=== PATIENT | female | born 1990 | race Caucasian/White ===

== ENCOUNTER 2019-02-07 11:57 | Inpatient (IN) | payer MEDICAID ==
[~2019-02-07] VITALS: Ht 172.7 cm; Wt 70.3 kg
[~2019-02-07 11:57] MED LIST: ASEN5TAB6 SL
[2019-02-07 12:45] LABS: BASOPHILS % (AUTO) 0.7 % (0.0-2.0); HEMATOCRIT 38.8 % (36-46); HEMOGLOBIN 13.1 g/dL (12.0-16.0); LYMPHOCYTES # (AUTO) 2.1 K/uL (1.0-4.8); LYMPHOCYTES % (AUTO) 25.9 % (22.0-44.0); MEAN CORPUSCULAR HEMOGLOBIN 30.1 pg (26.0-34.0); MEAN CORPUSCULAR HGB CONC 33.7 G/dL (31.0-37.0); MEAN CORPUSCULAR VOLUME 89 fL (80-100); MONOCYTES # (AUTO) 0.5 K/uL (0.1-1.0); MONOCYTES % (AUTO) 5.9 % (2.0-9.0); NEUTROPHILS # (AUTO) 5.4 K/uL (1.8-7.7); NEUTROPHILS % (AUTO) 66.5 % (40.0-70.0); PLATELET COUNT (AUTO) 228 K/uL (150-450); RED BLOOD CELL COUNT(AUTO) 4.35 MIL/uL (4.00-5.20)
[2019-02-07 12:54] LABS: ANION GAP 8 mmol/L (8-16); CALCIUM, TOTAL 8.4 mg/dL (8.8-10.5); CARBON DIOXIDE 26 mmol/L (22-29); CHLORIDE 105 mmol/L (98-107); CREATININE 0.57 mg/dL (0.60-1.30); GLOMERULAR FILTR. RATE CALC > 60 mL/min (>60); GLUCOSE,RANDOM 84 mg/dL (70-110); SODIUM SERUM 139 mmol/L (136-145); UREA NITROGEN, BLOOD 21 mg/dL (7-18)
[2019-02-07 12:59] LABS: ALANINE AMINOTRANSFERASE 26 U/L (12-78); ALBUMIN 3.4 g/dL (3.4-5.0); ALKALINE PHOSPHATASE 57 U/L (46-116); ASPARTATE AMINOTRANSFERASE 22 U/L (15-37); BILIRUBIN,TOTAL 0.3 mg/dL (0.1-1.0); TOTAL PROTEIN, SERUM 6.8 g/dL (6.4-8.2)
[2019-02-07] MEDS ORDERED: ZOLPIDEM TARTRATE 10 MG TABLET PO PRN (14:00)
[2019-02-07 19:11] VITALS: BP 132/74
[2019-02-07 19:45] VITALS: BP 132/74
[2019-02-07] MEDS ORDERED: MAGNESIUM HYDROXIDE SUSPENSION 30 ML UDCUP PO PRN (21:15)
[2019-02-07] MEDS ORDERED: LOPERAMIDE HCL 2 MG CAPSULE PO PRN (21:15)
[2019-02-07] MEDS ORDERED: ALBUTEROL SULFATE HFA 90 MCG/PUFF 8 GM INHALER IH PRN (21:15)
[2019-02-07] MEDS ORDERED: ACETAMINOPHEN 325 MG TABLET PO PRN (21:15)
[2019-02-07] MEDS ORDERED: MAG HYDROX/AL HYDROX/SIMETH ES 30 ML SUSPENSION UDCUP PO PRN (21:15)
[2019-02-07] MEDS ORDERED: IBUPROFEN 400 MG TABLET PO PRN (21:15)
[2019-02-07] MEDS ORDERED: CloNIDine HCL 0.1 MG TABLET PO PRN (21:15)
[2019-02-07] MEDS ORDERED: ONDANSETRON HCL 4 MG TABLET PO PRN (21:15)
[2019-02-07] MEDS ORDERED: NICOTINE 14 MG/24 HOUR PATCH TD PRN (21:15)
[2019-02-07] MEDS ORDERED: DOCUSATE SODIUM 100 MG CAPSULE PO PRN (21:15)
[2019-02-07] MEDS ORDERED: GuaiFENesin/D-METHORPHAN [SUGAR-FREE] 200-20MG/10 ML SYRUP UDCUP PO PRN (21:15)
[2019-02-07] MEDS ORDERED: PETROLATUM,WHITE 28 GM JELLY TP PRN (21:15)
[2019-02-08] MEDS ORDERED: INFLUENZA VIRUS VACCINE QVS 2019-20 (3YR+)/PF 60 MCG/0.5 ML SYRINGE IM ONE (04:15)
[2019-02-08 07:16] LABS: CHOL/HDL RATIO 2.2 (3.9-5.7); FREE T4 (FREE THYROXINE) 0.99 ng/dL (0.76-1.46); THYROID STIMULATING HORMONE 0.64 uIU/mL (0.36-3.74)
[2019-02-08] MEDS: ESCITALOPRAM OXALATE 10 MG TABLET PO SCH (17:47)
[2019-02-08] MEDS: OLANZapine 10 MG TABLET PO SCH (17:47)
[2019-02-09 09:40] VITALS: BP 131/82
[2019-02-09] MEDS: ESCITALOPRAM OXALATE 10 MG TABLET PO SCH (20:37)
[2019-02-09] MEDS: OLANZapine 10 MG TABLET PO SCH (20:37)
[2019-02-10 10:10] VITALS: BP 103/62
[2019-02-10] MEDS: OLANZapine 10 MG TABLET PO SCH (20:09)
[2019-02-10] MEDS: ESCITALOPRAM OXALATE 10 MG TABLET PO SCH (20:09)
[2019-02-11 08:28] VITALS: BP 148/80
[2019-02-11 20:08] VITALS: BP 126/56
[2019-02-11] MEDS: ESCITALOPRAM OXALATE 10 MG TABLET PO SCH (20:42)
[2019-02-11] MEDS: OLANZapine 10 MG TABLET PO SCH (20:42)
[2019-02-12 08:52] VITALS: BP 124/72
[2019-02-13 08:31] VITALS: BP 124/69
[2019-02-13 19:02] VITALS: BP 110/68
[2019-02-13] MEDS: OLANZapine 10 MG TABLET PO SCH (21:00)
[2019-02-13] MEDS: ESCITALOPRAM OXALATE 10 MG TABLET PO SCH (21:00)
[2019-02-14 10:58] VITALS: BP 114/88
[2019-02-14] MEDS: OLANZapine 10 MG TABLET PO SCH (20:48)
[2019-02-14] MEDS: ESCITALOPRAM OXALATE 10 MG TABLET PO SCH (20:48)
[2019-02-15] MEDS ORDERED: LORazepam 2 MG/ML VIAL IM ONE (13:30)
[2019-02-15] MEDS ORDERED: DiphenhydrAMINE HCL 50 MG/ML VIAL IM ONE (13:30)
[2019-02-15] MEDS ORDERED: HALOPERIDOL LACTATE 5 MG/ML VIAL IM ONE (13:30)
[2019-02-15] MEDS: ESCITALOPRAM OXALATE 10 MG TABLET PO SCH (20:53)
[2019-02-15] MEDS: OLANZapine 10 MG TABLET PO SCH (20:53)
[2019-02-16 08:28] VITALS: BP 131/70
[2019-02-16] MEDS: HALOPERIDOL 5 MG TABLET PO PRN (15:46)
[2019-02-16] MEDS: LORazepam 2 MG TABLET PO PRN (17:04)
[2019-02-16] MEDS: ESCITALOPRAM OXALATE 10 MG TABLET PO SCH (20:23)
[2019-02-16] MEDS: OLANZapine 10 MG TABLET PO SCH (20:23)
[2019-02-16 20:47] VITALS: BP 111/70
[2019-02-17 10:03] VITALS: BP 141/91
[2019-02-17 17:00] VITALS: BP 116/71
[2019-02-17] MEDS: ESCITALOPRAM OXALATE 10 MG TABLET PO SCH (20:24)
[2019-02-17] MEDS: OLANZapine 10 MG TABLET PO SCH (20:24)
[2019-02-18 05:29] VITALS: BP 119/79
[2019-02-18 08:52] VITALS: BP 147/83
[2019-02-18 17:09] VITALS: BP 124/83
[2019-02-18] MEDS: ESCITALOPRAM OXALATE 10 MG TABLET PO SCH (20:44)
[2019-02-18] MEDS: OLANZapine 10 MG TABLET PO SCH (20:44)
[2019-02-19 09:15] VITALS: BP 100/63
[2019-02-19 16:25] VITALS: BP 120/80
[2019-02-19] MEDS: ESCITALOPRAM OXALATE 10 MG TABLET PO SCH (20:15)
[2019-02-19] MEDS: OLANZapine 10 MG TABLET PO SCH (20:15)
[2019-02-20 10:21] VITALS: BP 123/72
[2019-02-20 16:00] VITALS: BP 115/69
[2019-02-20] MEDS: OLANZapine 10 MG TABLET PO SCH (20:26)
[2019-02-20] MEDS: ESCITALOPRAM OXALATE 10 MG TABLET PO SCH (20:27)
[2019-02-21 09:00] VITALS: BP 118/61
[2019-02-21 16:00] VITALS: BP 131/73
[2019-02-21] MEDS: OLANZapine 10 MG TABLET PO SCH (20:13)
[2019-02-21] MEDS: ESCITALOPRAM OXALATE 10 MG TABLET PO SCH (20:13)
[2019-02-22 12:55] VITALS: BP 120/74
[2019-02-22 17:14] VITALS: BP 118/70
[2019-02-22] MEDS: ESCITALOPRAM OXALATE 10 MG TABLET PO SCH (20:17)
[2019-02-22] MEDS: OLANZapine 10 MG TABLET PO SCH (20:17)
[2019-02-23 09:36] VITALS: BP 116/80
[2019-02-23 17:48] VITALS: BP 130/66
[2019-02-23] MEDS: ESCITALOPRAM OXALATE 10 MG TABLET PO SCH (20:30)
[2019-02-23] MEDS: OLANZapine 10 MG TABLET PO SCH (20:30)
[2019-02-24 09:30] VITALS: BP 131/81
[2019-02-24 17:54] VITALS: BP 101/60
[2019-02-24] MEDS: ESCITALOPRAM OXALATE 10 MG TABLET PO SCH (20:30)
[2019-02-24] MEDS: OLANZapine 10 MG TABLET PO SCH (20:30)
[2019-02-25] MEDS: OLANZapine 5 MG TABLET PO SCH (12:51)
[2019-02-25 17:39] VITALS: BP 109/42
[2019-02-25] MEDS: ESCITALOPRAM OXALATE 10 MG TABLET PO SCH (20:39)
[2019-02-25] MEDS: OLANZapine 10 MG TABLET PO SCH (20:39)
[2019-02-26 09:00] VITALS: BP 129/74
[2019-02-26] MEDS: OLANZapine 5 MG TABLET PO SCH (09:59)
[2019-02-26] MEDS: LORazepam 2 MG TABLET PO PRN (16:44)
[2019-02-26 17:31] VITALS: BP 115/77
[2019-02-26] MEDS: OLANZapine 10 MG TABLET PO SCH (20:32)
[2019-02-26] MEDS: ESCITALOPRAM OXALATE 10 MG TABLET PO SCH (20:33)
[2019-02-27 08:38] VITALS: BP 115/66
[2019-02-27] MEDS: OLANZapine 5 MG TABLET PO SCH ×2 (09:00→09:56)
[2019-02-27 18:25] VITALS: BP 133/100
[2019-02-27] MEDS: OLANZapine 10 MG TABLET PO SCH (20:34)
[2019-02-27] MEDS: ESCITALOPRAM OXALATE 10 MG TABLET PO SCH (20:34)
[2019-02-28 00:31] VITALS: BP 132/74
[2019-02-28 09:01] VITALS: BP 131/81
[2019-02-28] MEDS: LORazepam 2 MG TABLET PO PRN (09:38)
[2019-02-28] MEDS: OLANZapine 5 MG TABLET PO SCH (09:38)
[2019-02-28] MEDS: ESCITALOPRAM OXALATE 10 MG TABLET PO SCH (20:54)
[2019-02-28] MEDS: OLANZapine 10 MG TABLET PO SCH (20:54)
[2019-03-01] MEDS: LORazepam 2 MG TABLET PO PRN (09:12)
[2019-03-01] MEDS: OLANZapine 5 MG TABLET PO SCH (09:12)
[2019-03-01 09:33] VITALS: BP 130/86
[2019-03-01 17:00] VITALS: BP 113/74
[2019-03-01] MEDS: ESCITALOPRAM OXALATE 10 MG TABLET PO SCH (20:56)
[2019-03-01] MEDS: OLANZapine 10 MG TABLET PO SCH (20:56)
[2019-03-02 08:00] VITALS: BP 122/70
[2019-03-02] MEDS: OLANZapine 5 MG TABLET PO SCH (10:20)
[2019-03-02] MEDS: LORazepam 2 MG TABLET PO PRN (10:20)
[2019-03-02 20:31] VITALS: BP 113/72
[2019-03-02] MEDS: OLANZapine 10 MG TABLET PO SCH (20:42)
[2019-03-02] MEDS: ESCITALOPRAM OXALATE 10 MG TABLET PO SCH (20:42)
[2019-03-03 08:15] VITALS: BP 122/60
[2019-03-03] MEDS: OLANZapine 5 MG TABLET PO SCH (09:40)
[2019-03-03] MEDS: LORazepam 2 MG TABLET PO PRN (09:40)
[2019-03-03 18:22] VITALS: BP 118/68
[2019-03-03] MEDS: OLANZapine 10 MG TABLET PO SCH (20:16)
[2019-03-03] MEDS: ESCITALOPRAM OXALATE 10 MG TABLET PO SCH (20:16)
[2019-03-04 08:39] VITALS: BP 110/56
[2019-03-04] MEDS: OLANZapine 5 MG TABLET PO SCH (09:33)
[2019-03-04 16:30] VITALS: BP 115/70
[2019-03-04] MEDS: ESCITALOPRAM OXALATE 10 MG TABLET PO SCH (20:17)
[2019-03-04] MEDS: OLANZapine 10 MG TABLET PO SCH (20:17)
[2019-03-05 08:30] VITALS: BP 127/68
[2019-03-05] MEDS: LORazepam 2 MG TABLET PO PRN (09:35)
[2019-03-05] MEDS: OLANZapine 5 MG TABLET PO SCH (09:36)
[2019-03-05] MEDS: ESCITALOPRAM OXALATE 10 MG TABLET PO SCH (20:10)
[2019-03-05] MEDS: OLANZapine 10 MG TABLET PO SCH (20:10)
[2019-03-06 05:03] VITALS: BP_SYST 115; BP_SYST 128; BP_DIAS 73; BP_DIAS 97
[2019-03-06] MEDS: OLANZapine 5 MG TABLET PO SCH (09:23)
[2019-03-06 09:38] VITALS: BP 117/71
[2019-03-06 16:00] VITALS: BP 127/72
[2019-03-06] MEDS: OLANZapine 10 MG TABLET PO SCH (20:27)
[2019-03-06] MEDS: ESCITALOPRAM OXALATE 10 MG TABLET PO SCH (20:27)
[2019-03-07 00:52] VITALS: BP 107/76
[2019-03-07 08:00] VITALS: BP 127/88
[2019-03-07] MEDS: OLANZapine 5 MG TABLET PO SCH (08:54)
[2019-03-07] MEDS: LORazepam 2 MG TABLET PO PRN (15:53)
[2019-03-07] MEDS: HALOPERIDOL 5 MG TABLET PO PRN (15:53)
[2019-03-07 19:35] VITALS: BP 113/59
[2019-03-07] MEDS: ESCITALOPRAM OXALATE 10 MG TABLET PO SCH (20:51)
[2019-03-07] MEDS: OLANZapine 10 MG TABLET PO SCH (20:51)
[2019-03-08 08:00] VITALS: BP 131/77
[2019-03-08] MEDS: LORazepam 2 MG TABLET PO PRN ×2 (09:06→15:52)
[2019-03-08] MEDS: OLANZapine 5 MG TABLET PO SCH (09:06)
[2019-03-08] MEDS: HALOPERIDOL 5 MG TABLET PO PRN (15:52)
[2019-03-08 18:10] VITALS: BP 125/75
[2019-03-08] MEDS: ESCITALOPRAM OXALATE 10 MG TABLET PO SCH (20:17)
[2019-03-08] MEDS: OLANZapine 10 MG TABLET PO SCH (20:17)
[2019-03-09 08:00] VITALS: BP 117/82
[2019-03-09] MEDS: LORazepam 2 MG TABLET PO PRN (09:58)
[2019-03-09] MEDS: OLANZapine 5 MG TABLET PO SCH (09:58)
[2019-03-09] MEDS: OLANZapine 10 MG TABLET PO SCH (20:14)
[2019-03-09] MEDS: ESCITALOPRAM OXALATE 10 MG TABLET PO SCH (20:14)
[2019-03-10 08:00] VITALS: BP 124/77
[2019-03-10] MEDS: OLANZapine 5 MG TABLET PO SCH (09:12)
[2019-03-10 18:39] VITALS: BP 123/75
[2019-03-10] MEDS: ESCITALOPRAM OXALATE 10 MG TABLET PO SCH (20:03)
[2019-03-10] MEDS: OLANZapine 10 MG TABLET PO SCH (20:03)
[2019-03-11 08:14] VITALS: BP 128/85
[2019-03-11] MEDS: OLANZapine 5 MG TABLET PO SCH (08:33)
[2019-03-11 17:13] VITALS: BP 98/57
[2019-03-11] MEDS: ESCITALOPRAM OXALATE 10 MG TABLET PO SCH (20:08)
[2019-03-11] MEDS: OLANZapine 10 MG TABLET PO SCH (20:08)
[2019-03-12 03:35] VITALS: BP 121/82
[2019-03-12] MEDS: LORazepam 2 MG TABLET PO PRN (03:37)
[2019-03-12 09:02] VITALS: BP 98/60
[2019-03-12] MEDS: OLANZapine 5 MG TABLET PO SCH (10:35)
[2019-03-12 18:40] VITALS: BP 133/79
[2019-03-12] MEDS: ESCITALOPRAM OXALATE 10 MG TABLET PO SCH (20:35)
[2019-03-12] MEDS: OLANZapine 10 MG TABLET PO SCH (20:35)
[2019-03-13 08:30] VITALS: BP 124/67
[2019-03-13] MEDS: LORazepam 2 MG TABLET PO PRN (09:02)
[2019-03-13] MEDS: OLANZapine 5 MG TABLET PO SCH (09:02)
[2019-03-13 19:40] VITALS: BP 114/70
[2019-03-13] MEDS: OLANZapine 10 MG TABLET PO SCH (20:12)
[2019-03-13] MEDS: ESCITALOPRAM OXALATE 10 MG TABLET PO SCH (20:12)
[2019-03-14] MEDS: LORazepam 2 MG TABLET PO PRN (02:10)
[2019-03-14 02:11] VITALS: BP 115/66
[2019-03-14 08:10] VITALS: BP 119/74
[2019-03-14] MEDS: OLANZapine 5 MG TABLET PO SCH (09:00)
[2019-03-14 18:33] VITALS: BP 120/83
[2019-03-14] MEDS: ESCITALOPRAM OXALATE 10 MG TABLET PO SCH (20:39)
[2019-03-14] MEDS: OLANZapine 10 MG TABLET PO SCH (20:39)
[2019-03-15] MEDS: LORazepam 2 MG TABLET PO PRN (08:13)
[2019-03-15] MEDS: OLANZapine 5 MG TABLET PO SCH (08:14)
[2019-03-15 09:24] VITALS: BP 166/72
[2019-03-15 19:50] VITALS: BP 111/72
[2019-03-15] MEDS: OLANZapine 10 MG TABLET PO SCH (20:38)
[2019-03-15] MEDS: ESCITALOPRAM OXALATE 10 MG TABLET PO SCH (20:38)
[2019-03-16] MEDS: OLANZapine 5 MG TABLET PO SCH (08:56)
[2019-03-16 09:57] VITALS: BP 128/77
[2019-03-16 18:01] VITALS: BP 113/90
[2019-03-16] MEDS: ESCITALOPRAM OXALATE 10 MG TABLET PO SCH (20:09)
[2019-03-16] MEDS: OLANZapine 10 MG TABLET PO SCH (20:09)
[2019-03-17 09:22] VITALS: BP 106/61
[2019-03-17] MEDS: OLANZapine 5 MG TABLET PO SCH (09:54)
[2019-03-17] MEDS ORDERED: ESCI10TA PO (10:02)
[2019-03-17] MEDS ORDERED: OLAN15TA2 PO ×2 (10:03)
== END 2019-03-17 13:00 | disposition home or self-care (01) | DRG 885 ==
LOC: EMS 11:58 → 3EI 15:09
PROVIDERS: ADMIT Psychiatry & Neurology Child & Adolescent Psychiatry; ATTEND Psychiatry & Neurology Child & Adolescent Psychiatry
DX: F25.1 Schizoaffective disorder, depressive type (principal); R45.851 Suicidal ideations; Z28.21 Immunization not carried out because of patient refusal; K21.9 Gastro-esophageal reflux disease without esophagitis; K59.00 Constipation, unspecified; Z59.0 Homelessness; F15.90 Other stimulant use, unspecified, uncomplicated; E86.0 Dehydration; F90.9 Attention-deficit hyperactivity disorder, unspecified type; G47.00 Insomnia, unspecified; Z79.899 Other long term (current) drug therapy
CPT/HCPCS: 84439; 84443; G0480; J1200; J1630; J2060; Q0162